=== PATIENT | male | born 1945 | race Caucasian/White ===

== ENCOUNTER 2018-06-26 10:25 | Inpatient (IN) ==
[2018-06-26 11:10] LABS: Basophils % 0.2 % (0.0-0.8); Eosinophils # 0.1 10*3/uL (0.0-0.87); Eosinophils % 0.5 % (0.00-10.9); Hematocrit 35.1 VOL% (42.0-52.0); Immature Granulocytes % 0.5 %; Immature Granulocytes Absolute 0.05 #; Lymphocytes # 1.2 10*3/uL (1.4-4.0); Lymphocytes % 11.5 % (21.2-54.2); Mean Corpuscular HGB Conc 34.2 GM/DL (32-36); Mean Corpuscular Hemoglobin 35 PG (27-34); Mean Corpuscular Volume 102.3 FL (87-102); Monocytes # 0.9 10*3/uL (0.11-0.8); Monocytes % 9.3 % (1.7-12.7); Neutrophils # 7.8 10*3/uL (1.4-7.4); Platelet Count 144 T/CUMM (130-400); Red Blood Count 3.43 MC/CUMM (3.8-5.5); Red Cell Distribution Width 13.9 % (9.3-17.3)
[2018-06-26 11:36] LABS: Apearance,Urine CLEAR (Clear); Bacteria,Urine Occasional /HPF (Few); Bilirubin,Urine Negative (Negative); Blood, Urine Small mg/dL (Negative); Glucose,Urine (UA) Negative (Negative); Ketones,Urine Negative (Negative); Nitrite,Urine Negative (Negative); Protein,Urine Negative; RBC,Urine 1 /HPF (0-4); Urine Color Straw (Yellow); Urine Specific Gravity 1.008 (1.001-1.035); Urine Urobilinogen < 2.0 EU/DL (0.2-1.0)
[2018-06-26 11:45] LABS: Albumin 3.7 G/DL (3.4-5.0); Bilirubin,Total 0.8 MG/DL (0.2-1.0); Calcium 8.7 MG/DL (8.5-10.1); Osmolality,Calculated 285.5 MOS/KG (273-304); Potassium 4.7 MMOL/L (3.5-5.1); Total Protein 7.6 G/DL (6.4-8.3)
[2018-06-26] MEDS ORDERED: PIPERACILLIN/TAZOBACTAM 3,375 MG in SODIUM CHLORIDE 0.9% 100 ML IV STA (12:42)
[2018-06-26 13:10] LABS: INR 1.9; PT Patient Result 19.9 SECS
[2018-06-26] MEDS ORDERED: GLUCAGON 1 MG VIAL IM PRN (15:07)
[2018-06-26] MEDS ORDERED: DEXTROSE 50% 25 GM/50 ML VIAL IV PRN (15:07)
[2018-06-26] MEDS ORDERED: ONDANSETRON 4 MG/2 ML VIAL IV PRN (15:07)
[2018-06-26] MEDS ORDERED: PHYTONADIONE 5 MG/5 ML ORAL.SYR PO ONE (17:18)
[2018-06-26] MEDS ORDERED: cefOXitin 2,000 MG in SYRINGE 1 EACH IV ONE (17:18)
[2018-06-26] MEDS: ENOXAPARIN 40 MG/0.4 ML SYRINGE SUBCUT SCH (17:42)
[2018-06-26] MEDS: LACTATED RINGERS 1,000 ML IV SCH (18:02)
[2018-06-26] MEDS: PIPERACILLIN/TAZOBACTAM 3,375 MG in SODIUM CHLORIDE 0.9% 100 ML IV SCH (20:00)
[2018-06-27 03:41] LABS: Basophils % 0.1 % (0.0-0.8); Eosinophils # 0.1 10*3/uL (0.0-0.87); Eosinophils % 0.8 % (0.00-10.9); Hematocrit 32.9 VOL% (42.0-52.0); Hemoglobin 11.1 GM/DL (14.0-18.0); Immature Granulocytes % 0.4 %; Immature Granulocytes Absolute 0.03 #; Lymphocytes # 1.2 10*3/uL (1.4-4.0); Lymphocytes % 15.7 % (21.2-54.2); Mean Corpuscular HGB Conc 33.7 GM/DL (32-36); Mean Corpuscular Hemoglobin 35 PG (27-34); Mean Corpuscular Volume 104.4 FL (87-102); Mean Platelet Volume 11.9 FL (9.6-12.0); Monocytes # 0.9 10*3/uL (0.11-0.8); Monocytes % 11.7 % (1.7-12.7); Neutrophils # 5.4 10*3/uL (1.4-7.4); Neutrophils % 71.3 % (38.7-73.9); Platelet Count 133 T/CUMM (130-400); Red Blood Count 3.15 MC/CUMM (3.8-5.5); White Blood Count 7.6 T/CUMM (4-12)
[2018-06-27 03:43] LABS: INR 1.6; PT Patient Result 16.5 SECS
[2018-06-27 03:47] LABS: Calcium 8.3 MG/DL (8.5-10.1); Osmolality,Calculated 281.7 MOS/KG (273-304)
[2018-06-27] MEDS: PIPERACILLIN/TAZOBACTAM 3,375 MG in SODIUM CHLORIDE 0.9% 100 ML IV SCH ×3 (04:49→21:07)
[2018-06-27] MEDS: LACTATED RINGERS 1,000 ML IV SCH ×3 (05:24→17:14)
[2018-06-27] MEDS ORDERED: cefOXitin 2,000 MG in SYRINGE 1 EACH IV ONE (06:00)
[2018-06-27] MEDS ORDERED: TISSUE ADHESIVE 1 EACH APPLICATOR TOP ONE (06:27)
[2018-06-27] MEDS ORDERED: BUPIVACAINE MPF 0.25% /EPI 30 ML VIAL ONE (06:27)
[2018-06-27] MEDS ORDERED: LIDOCAINE 1%/EPI INJ 20 ML VIAL ONE (06:28)
[2018-06-27] MEDS ORDERED: HYDROmorphone 2 MG/1 ML VIAL IV PRN (08:51)
[2018-06-27] MEDS ORDERED: fentaNYL 100 MCG/2 ML VIAL ONE (08:53)
[2018-06-27] MEDS ORDERED: PROPOFOL 200 MG/20 ML VIAL IV ONE (08:53)
[2018-06-27] MEDS ORDERED: GLYCOPYRROLATE 0.4 MG/2 ML VIAL ONE (08:53)
[2018-06-27] MEDS ORDERED: SUCCINYLCHOLINE 200 MG/10 ML VIAL ONE (08:54)
[2018-06-27] MEDS ORDERED: NEOSTIGMINE 10 MG/10 ML VIAL ONE ×2 (08:54)
[2018-06-27] MEDS ORDERED: ROCURONIUM 100 MG/10 ML VIAL IV ONE (08:56)
[2018-06-27] MEDS ORDERED: SEVOFLURANE 1 UNIT/15 MINUTE INH ONE (08:56)
[2018-06-27] MEDS: POTASSIUM CHLORIDE 10 MEQ TABLET PO SCH ×2 (09:55→21:07)
[2018-06-27] MEDS: ERGOCALCIFEROL 50,000 UNIT CAPSULE PO SCH (09:57)
[2018-06-27] MEDS: CARVEDILOL 6.25 MG TABLET PO SCH ×2 (09:57→21:07)
[2018-06-27] MEDS: MAGNESIUM OXIDE 400 MG TABLET PO SCH (09:57)
[2018-06-27] MEDS: ISOSORBIDE MONONITRATE 60 MG TABLET PO SCH (09:57)
[2018-06-27] MEDS: FUROSEMIDE 40 MG TABLET PO SCH (09:57)
[2018-06-27] MEDS: ASPIRIN EC 81 MG TABLET PO SCH (09:57)
[2018-06-27 11:23] LABS: Basophils % 0.2 % (0.0-0.8); Eosinophils % 0.2 % (0.00-10.9); Hematocrit 40.5 VOL% (42.0-52.0); Immature Granulocytes % 0.4 %; Immature Granulocytes Absolute 0.02 #; Lymphocytes # 0.5 10*3/uL (1.4-4.0); Lymphocytes % 9.3 % (21.2-54.2); Mean Corpuscular HGB Conc 32.8 GM/DL (32-36); Mean Corpuscular Hemoglobin 35 PG (27-34); Mean Corpuscular Volume 105.5 FL (87-102); Mean Platelet Volume 11.3 FL (9.6-12.0); Monocytes # 0.4 10*3/uL (0.11-0.8); Monocytes % 7.3 % (1.7-12.7); Neutrophils # 4.7 10*3/uL (1.4-7.4); Neutrophils % 82.6 % (38.7-73.9); Platelet Count 137 T/CUMM (130-400); Red Cell Distribution Width 13.9 % (9.3-17.3); White Blood Count 5.6 T/CUMM (4-12)
[2018-06-27 11:30] LABS: Hemoglobin 13.3 GM/DL (14.0-18.0); Red Blood Count 3.84 MC/CUMM (3.8-5.5)
[2018-06-27 11:42] LABS: Calcium 8.5 MG/DL (8.5-10.1); Potassium 4.9 MMOL/L (3.5-5.1)
[2018-06-27] MEDS ORDERED: SODIUM CHLORIDE 0.45% 1,000 ML IV SCH (16:00)
[2018-06-27] MEDS ORDERED: CARVEDILOL 6.25 MG TABLET PO ONE (16:07)
[2018-06-27] MEDS: ENOXAPARIN 40 MG/0.4 ML SYRINGE SUBCUT SCH (17:57)
[2018-06-27] MEDS: DOCUSATE SODIUM 100 MG CAPSULE PO SCH (21:07)
[2018-06-28] MEDS: PIPERACILLIN/TAZOBACTAM 3,375 MG in SODIUM CHLORIDE 0.9% 100 ML IV SCH ×3 (03:58→20:40)
[2018-06-28] MEDS: LACTATED RINGERS 1,000 ML IV SCH ×3 (04:23→20:43)
[2018-06-28 04:58] LABS: Basophils % 0.2 % (0.0-0.8); Eosinophils % 0.4 % (0.00-10.9); Hematocrit 31.4 VOL% (42.0-52.0); Hemoglobin 10.5 GM/DL (14.0-18.0); Immature Granulocytes % 0.4 %; Immature Granulocytes Absolute 0.02 #; Lymphocytes # 0.9 10*3/uL (1.4-4.0); Lymphocytes % 16.1 % (21.2-54.2); Mean Corpuscular HGB Conc 33.4 GM/DL (32-36); Mean Corpuscular Hemoglobin 35 PG (27-34); Mean Corpuscular Volume 104.3 FL (87-102); Mean Platelet Volume 11.4 FL (9.6-12.0); Monocytes # 0.6 10*3/uL (0.11-0.8); Monocytes % 9.9 % (1.7-12.7); Neutrophils # 4.1 10*3/uL (1.4-7.4); Platelet Count 131 T/CUMM (130-400); Red Blood Count 3.01 MC/CUMM (3.8-5.5); Red Cell Distribution Width 13.9 % (9.3-17.3); White Blood Count 5.7 T/CUMM (4-12)
[2018-06-28 05:11] LABS: Calcium 8.2 MG/DL (8.5-10.1); Potassium 4.7 MMOL/L (3.5-5.1)
[2018-06-28 05:11] LABS: INR 1.1
[2018-06-28] MEDS: LEVOTHYROXINE 75 MCG TABLET PO SCH (06:19)
[2018-06-28] MEDS: MAGNESIUM OXIDE 400 MG TABLET PO SCH (08:37)
[2018-06-28] MEDS: POTASSIUM CHLORIDE 10 MEQ TABLET PO SCH ×2 (08:37→20:40)
[2018-06-28] MEDS: ISOSORBIDE MONONITRATE 60 MG TABLET PO SCH (08:38)
[2018-06-28] MEDS: FUROSEMIDE 40 MG TABLET PO SCH (08:38)
[2018-06-28] MEDS: CARVEDILOL 6.25 MG TABLET PO SCH ×2 (08:38→20:39)
[2018-06-28] MEDS: ASPIRIN EC 81 MG TABLET PO SCH (08:38)
[2018-06-28] MEDS: INSULIN REGULAR 100 UNIT/ML SUBCUT SCH ×3 (12:26→20:46)
[2018-06-28] MEDS: ENOXAPARIN 40 MG/0.4 ML SYRINGE SUBCUT SCH (17:09)
[2018-06-28] MEDS: DOCUSATE SODIUM 100 MG CAPSULE PO SCH (20:40)
[2018-06-28] MEDS: ACETAMINOPHEN 325 MG TABLET PO PRN (20:40)
[2018-06-29] MEDS: PIPERACILLIN/TAZOBACTAM 3,375 MG in SODIUM CHLORIDE 0.9% 100 ML IV SCH ×3 (04:10→20:41)
[2018-06-29] MEDS: LACTATED RINGERS 1,000 ML IV SCH (04:11)
[2018-06-29 04:22] LABS: Basophils % 0.2 % (0.0-0.8); Eosinophils % 0.6 % (0.00-10.9); Hematocrit 31.4 VOL% (42.0-52.0); Hemoglobin 10.2 GM/DL (14.0-18.0); Immature Granulocytes % 0.4 %; Immature Granulocytes Absolute 0.02 #; Lymphocytes # 0.8 10*3/uL (1.4-4.0); Mean Corpuscular HGB Conc 32.5 GM/DL (32-36); Mean Corpuscular Hemoglobin 34 PG (27-34); Mean Corpuscular Volume 104.7 FL (87-102); Mean Platelet Volume 11.6 FL (9.6-12.0); Monocytes # 0.5 10*3/uL (0.11-0.8); Monocytes % 9.8 % (1.7-12.7); Neutrophils # 3.5 10*3/uL (1.4-7.4); Platelet Count 133 T/CUMM (130-400); Red Cell Distribution Width 13.6 % (9.3-17.3); White Blood Count 4.8 T/CUMM (4-12)
[2018-06-29 04:29] LABS: INR 1.1; PT Patient Result 11.4 SECS
[2018-06-29 04:39] LABS: Calcium 8.2 MG/DL (8.5-10.1); Osmolality,Calculated 284.7 MOS/KG (273-304); Potassium 4.5 MMOL/L (3.5-5.1)
[2018-06-29] MEDS: LEVOTHYROXINE 75 MCG TABLET PO SCH (06:27)
[2018-06-29] MEDS: ISOSORBIDE MONONITRATE 60 MG TABLET PO SCH (08:29)
[2018-06-29] MEDS: INSULIN REGULAR 100 UNIT/ML SUBCUT SCH ×4 (08:29→20:51)
[2018-06-29] MEDS: FUROSEMIDE 40 MG TABLET PO SCH (08:30)
[2018-06-29] MEDS: POTASSIUM CHLORIDE 10 MEQ TABLET PO SCH ×2 (08:30→20:42)
[2018-06-29] MEDS: MAGNESIUM OXIDE 400 MG TABLET PO SCH (08:30)
[2018-06-29] MEDS: ERGOCALCIFEROL 50,000 UNIT CAPSULE PO SCH (08:30)
[2018-06-29] MEDS: CARVEDILOL 6.25 MG TABLET PO SCH ×2 (08:30→20:42)
[2018-06-29] MEDS: ASPIRIN EC 81 MG TABLET PO SCH (08:30)
[2018-06-29] MEDS: ENOXAPARIN 40 MG/0.4 ML SYRINGE SUBCUT SCH (17:00)
[2018-06-29] MEDS ORDERED: WARFARIN 10 MG TABLET PO SCH (18:00)
[2018-06-29] MEDS: ACETAMINOPHEN 325 MG TABLET PO PRN (20:42)
[2018-06-29] MEDS: DOCUSATE SODIUM 100 MG CAPSULE PO SCH (20:42)
[2018-06-30] MEDS: PIPERACILLIN/TAZOBACTAM 3,375 MG in SODIUM CHLORIDE 0.9% 100 ML IV SCH (03:50)
[2018-06-30 04:46] LABS: Basophils % 0.2 % (0.0-0.8); Eosinophils # 0.1 10*3/uL (0.0-0.87); Eosinophils % 1.5 % (0.00-10.9); Hematocrit 29.6 VOL% (42.0-52.0); Hemoglobin 9.9 GM/DL (14.0-18.0); Immature Granulocytes % 0.7 %; Immature Granulocytes Absolute 0.03 #; Lymphocytes # 0.7 10*3/uL (1.4-4.0); Lymphocytes % 18.5 % (21.2-54.2); Mean Corpuscular HGB Conc 33.4 GM/DL (32-36); Mean Corpuscular Hemoglobin 35 PG (27-34); Mean Platelet Volume 11.5 FL (9.6-12.0); Monocytes # 0.5 10*3/uL (0.11-0.8); Neutrophils # 2.7 10*3/uL (1.4-7.4); Neutrophils % 67.1 % (38.7-73.9); Platelet Count 140 T/CUMM (130-400); Red Blood Count 2.82 MC/CUMM (3.8-5.5); Red Cell Distribution Width 13.5 % (9.3-17.3)
[2018-06-30 05:06] LABS: Calcium 8.4 MG/DL (8.5-10.1); Osmolality,Calculated 281.8 MOS/KG (273-304); Potassium 4.8 MMOL/L (3.5-5.1)
[2018-06-30 05:11] LABS: PT Patient Result 10.8 SECS
[2018-06-30 05:23] LABS: Platelet Estimate Decreased; Polychromasia Few
[2018-06-30] MEDS: LEVOTHYROXINE 75 MCG TABLET PO SCH (06:36)
[2018-06-30] MEDS ORDERED: AMOXICILLIN/CLAV 875 MG TABLET PO SCH (07:30)
[2018-06-30] MEDS: CARVEDILOL 6.25 MG TABLET PO SCH (08:07)
[2018-06-30] MEDS: POTASSIUM CHLORIDE 10 MEQ TABLET PO SCH (08:07)
[2018-06-30] MEDS: MAGNESIUM OXIDE 400 MG TABLET PO SCH (08:07)
[2018-06-30] MEDS: FUROSEMIDE 40 MG TABLET PO SCH (08:07)
[2018-06-30] MEDS: ASPIRIN EC 81 MG TABLET PO SCH (08:07)
[2018-06-30] MEDS: ISOSORBIDE MONONITRATE 60 MG TABLET PO SCH (08:07)
[2018-06-30 08:13] VITALS: BP 151/90
[2018-06-30] MEDS: INSULIN REGULAR 100 UNIT/ML SUBCUT SCH (09:41)
[2018-07-01] MEDS ORDERED: WARFARIN 7.5 MG TABLET PO SCH (18:00)
== END 2018-06-30 09:53 | disposition home or self-care (01) | DRG 339 ==
LOC: N.ED 10:25 → N.EDINP 13:34 → N.3E 14:40
PROVIDERS: ADMIT Surgery; ATTEND Surgery

== ENCOUNTER 2020-06-08 08:07 | Inpatient (IN) ==
[2020-06-08] MEDS ORDERED: SODIUM CHLORIDE 0.9% 1,000 ML IV STA (08:29)
[2020-06-08] MEDS ORDERED: PANTOPRAZOLE 40 MG VIAL IV STA (08:29)
[2020-06-08 08:49] LABS: Basophils % 0.3 % (0.0-0.8); Eosinophils # 0.1 10*3/uL (0.0-0.87); Eosinophils % 1.2 % (0.00-10.9); Hematocrit 25.6 VOL% (42.0-52.0); Hemoglobin 8.5 GM/DL (14.0-18.0); Immature Granulocytes % 0.3 %; Immature Granulocytes Absolute 0.02 #; Lymphocytes # 1.3 10*3/uL (1.4-4.0); Mean Corpuscular HGB Conc 33.2 GM/DL (32-36); Mean Corpuscular Volume 105.3 FL (87-102); Mean Platelet Volume 11.4 FL (9.6-12.0); Monocytes % 7.2 % (1.7-12.7); Platelet Count 142 T/CUMM (130-400); Red Blood Count 2.43 MC/CUMM (3.8-5.5); Red Cell Distribution Width 14.4 % (9.3-17.3)
[2020-06-08] MEDS ORDERED: SODIUM CHLORIDE 0.9% 1,000 ML IV PRN (09:11)
[2020-06-08 09:18] LABS: INR 1.2; PT Patient Result 12.7 SECS (9.8-11.9)
[2020-06-08 09:58] LABS: Albumin 3.2 G/DL (3.4-5.0); Bilirubin,Total 0.4 MG/DL (0.2-1.0); Calcium 7.9 MG/DL (8.5-10.1); Osmolality,Calculated 298.3 MOS/KG (273-304); Total Protein 5.8 G/DL (6.4-8.3)
[2020-06-08] MEDS ORDERED: DEXTROSE 50% 25 GM/50 ML VIAL IV PRN (10:37)
[2020-06-08] MEDS ORDERED: ONDANSETRON 4 MG/2 ML VIAL IV PRN (10:37)
[2020-06-08] MEDS ORDERED: GLUCAGON 1 MG VIAL IM PRN (10:37)
[2020-06-08 12:58] LABS: Hematocrit 23.5 VOL% (42.0-52.0); Hemoglobin 7.5 GM/DL (14.0-18.0)
[2020-06-08] MEDS: POLYETHYLENE GLYCOL POWDER 17 GM PACK PO SCH ×3 (15:09→21:20)
[2020-06-08 17:50] LABS: Folate 14.3 NG/ML (5.4-24.0)
[2020-06-09 06:55] LABS: Basophils % 0.4 % (0.0-0.8); Eosinophils # 0.1 10*3/uL (0.0-0.87); Eosinophils % 1.9 % (0.00-10.9); Hematocrit 22.9 VOL% (42.0-52.0); Hemoglobin 7.8 GM/DL (14.0-18.0); Immature Granulocytes % 0.4 %; Immature Granulocytes Absolute 0.02 #; Lymphocytes # 1.7 10*3/uL (1.4-4.0); Lymphocytes % 35.5 % (21.2-54.2); Mean Corpuscular HGB Conc 34.1 GM/DL (32-36); Mean Corpuscular Volume 99.6 FL (87-102); Mean Platelet Volume 11.6 FL (9.6-12.0); Monocytes % 9.6 % (1.7-12.7); Neutrophils % 52.2 % (38.7-73.9); Red Cell Distribution Width 16.2 % (9.3-17.3); White Blood Count 4.7 T/CUMM (4-12)
[2020-06-09 07:03] LABS: Platelet Count 111 T/CUMM (130-400)
[2020-06-09 07:17] LABS: Eosinophils 3 % (0-10); Lymphocytes 33 % (20-55); Platelet Estimate Adequate; Segmented Neutrophils 58 % (50-85); Total Cells Counted 100
[2020-06-09 07:18] LABS: Hypochromasia Slight
[2020-06-09 07:35] LABS: Calcium 7.9 MG/DL (8.5-10.1); Osmolality,Calculated 286.3 MOS/KG (273-304)
[2020-06-09 08:01] LABS: Hematocrit 24.1 VOL% (42.0-52.0); Hemoglobin 8.2 GM/DL (14.0-18.0)
[2020-06-09] MEDS ORDERED: SODIUM CHLORIDE 0.9% 1,000 ML IV PRN (08:20)
[2020-06-09] MEDS ORDERED: FUROSEMIDE 20 MG/2 ML VIAL IV PRN ×2 (08:20→20:00)
[2020-06-09] MEDS: POLYETHYLENE GLYCOL POWDER 17 GM PACK PO SCH ×3 (09:37→21:29)
[2020-06-09] MEDS: FUROSEMIDE 20 MG/2 ML VIAL IV PRN ×2 (16:04→23:06)
[2020-06-10 07:24] LABS: Basophils % 0.5 % (0.0-0.8); Eosinophils # 0.1 10*3/uL (0.0-0.87); Eosinophils % 1.8 % (0.00-10.9); Hematocrit 27.7 VOL% (42.0-52.0); Hemoglobin 9.6 GM/DL (14.0-18.0); Immature Granulocytes % 0.3 %; Immature Granulocytes Absolute 0.01 #; Lymphocytes # 1.4 10*3/uL (1.4-4.0); Lymphocytes % 35.5 % (21.2-54.2); Mean Corpuscular HGB Conc 34.7 GM/DL (32-36); Mean Corpuscular Volume 97.2 FL (87-102); Mean Platelet Volume 11.5 FL (9.6-12.0); Monocytes % 10.1 % (1.7-12.7); Neutrophils % 51.8 % (38.7-73.9); Platelet Count 114 T/CUMM (130-400); Red Blood Count 2.85 MC/CUMM (3.8-5.5); Red Cell Distribution Width 15.9 % (9.3-17.3)
[2020-06-10 07:55] LABS: Anisocytosis 1+; Band Neutrophils 2 % (0-10); Eosinophils 3 % (0-10); Lymphocytes 35 % (20-55); Macrocytosis Slight; Platelet Estimate Adequate; Segmented Neutrophils 51 % (50-85); Total Cells Counted 100
[2020-06-10 08:03] LABS: Calcium 8.4 MG/DL (8.5-10.1); Osmolality,Calculated 287.1 MOS/KG (273-304)
[2020-06-10] MEDS ORDERED: propofoL 200 MG/20 ML VIAL IV ONE (09:00)
[2020-06-10] MEDS ORDERED: ETOMIDATE 20 MG/10 ML VIAL IV ONE (09:00)
[2020-06-10] MEDS ORDERED: LIDOCAINE 2% 5 ML VIAL ONE (09:00)
[2020-06-10] MEDS ORDERED: PHENYLEPHRINE 1 MG/10 ML SYRINGE IV ONE (09:00)
[2020-06-10] MEDS: LACTATED RINGERS 1,000 ML IV SCH (10:00)
[2020-06-10 10:55] LABS: Hematocrit 35.1 VOL% (42.0-52.0)
[2020-06-10 11:00] LABS: Hemoglobin 11.9 GM/DL (14.0-18.0)
[2020-06-10] MEDS: POLYETHYLENE GLYCOL POWDER 17 GM PACK PO SCH ×3 (11:24→21:18)
[2020-06-10] MEDS ORDERED: NITROGLYCERIN SL 0.4 MG TABLET SL PRN (13:35)
[2020-06-10] MEDS: carvediloL 6.25 MG TABLET PO SCH (16:59)
[2020-06-10] MEDS ORDERED: INSULIN GLARGINE 100 UNIT/ML SUBCUT SCH (21:00)
[2020-06-10 22:35] LABS: Hematocrit 29.2 VOL% (42.0-52.0)
[2020-06-11 05:45] LABS: Basophils % 0.2 % (0.0-0.8); Eosinophils # 0.1 10*3/uL (0.0-0.87); Eosinophils % 1.4 % (0.00-10.9); Hematocrit 28.2 VOL% (42.0-52.0); Hemoglobin 9.6 GM/DL (14.0-18.0); Immature Granulocytes % 0.2 %; Immature Granulocytes Absolute 0.01 #; Lymphocytes # 1.4 10*3/uL (1.4-4.0); Lymphocytes % 32.6 % (21.2-54.2); Mean Corpuscular Volume 97.2 FL (87-102); Mean Platelet Volume 11.1 FL (9.6-12.0); Monocytes % 10.6 % (1.7-12.7); Platelet Count 119 T/CUMM (130-400); Red Cell Distribution Width 15.2 % (9.3-17.3); White Blood Count 4.4 T/CUMM (4-12)
[2020-06-11 06:06] LABS: Calcium 8.4 MG/DL (8.5-10.1); Osmolality,Calculated 285.4 MOS/KG (273-304)
[2020-06-11 06:08] LABS: Hypochromasia 1+; Platelet Estimate Decreased
[2020-06-11] MEDS: carvediloL 6.25 MG TABLET PO SCH (08:18)
[2020-06-11] MEDS: LACTATED RINGERS 1,000 ML IV SCH (08:19)
[2020-06-11] MEDS: POLYETHYLENE GLYCOL POWDER 17 GM PACK PO SCH (08:19)
[2020-06-11] MEDS ORDERED: lisinopriL 2.5 MG TABLET PO SCH (09:00)
[2020-06-11] MEDS ORDERED: FUROSEMIDE 40 MG TABLET PO SCH (09:00)
[2020-06-11] MEDS ORDERED: ISOSORBIDE MONONITRATE 30 MG TABLET PO SCH (09:00)
[2020-06-11 11:54] VITALS: BP 102/60
== END 2020-06-11 12:50 | disposition home or self-care (01) | DRG 378 ==
LOC: N.ED 08:07 → N.EDINP 08:07 → SUATTDRO 10:37 → N.EDINP 11:30 → N.3E 12:12 → N.4E 06-10 15:27
PROVIDERS: ADMIT Internal Medicine Geriatric Medicine; ATTEND Hospitalist